=== PATIENT | female | born 1965 | race African-American/Black ===

== ENCOUNTER 2017-06-11 05:29 | Observation (INO) | payer SELFPAY ==
--- NOTE | 2017-06-11 05:56 | PDOC ---
History of Present Illness - General History Source: Patient Exam Limitations: No Limitations - History of Present Illness Initial Comments: 06/11/17 06:03 The patient is a 52 year old female with a significant PMHx of hypertension ( losartan daily) and hypothyroidism, who presents to the emergency department with progressive, intermittent chest pain and tightness for 2 days. The patient reports feeling a mild chest tightness yesterday, however, states the pain was worse this morning and woke her out of sleep at 3AM. She denies radiation of her chest pain. She reports stretching temporarily alleviates her chest tightness. She denies recent travels, illnesses, or sick contacts. She denies dizziness, SOB, headache, nausea, vomiting or abdominal pain. She denies dysuria, hematuria , or change in urination. PCP: Dr. Erwin Robles [employer] Collision Estimator: Dr. Cross <Bea Salazar - Last Filed: 06/11/17 06:03> <Tiffanie Calle - Last Filed: 06/11/17 06:54> - General Chief Complaint: Chest Pain Stated Complaint: CHEST PAIN Time Seen by Provider: 06/11/17 05:55 Past History <Bea Salazar - Last Filed: 06/11/17 06:03> - Past Medical History Anemia: No Asthma: No Cancer: No Cardiac Disorders: No CVA: No COPD: No CHF: No Diabetes: No GI Disorders: No Disorders: No HTN: No Hypercholesterolemia: No Liver Disease: No Seizures: No Thyroid Disease: No - Immunization History Immunization Up to Date: Yes - Suicide/Smoking/Psychosocial Hx Smoking Status: No Smoking History: Unknown if ever smoked Have you smoked in the past 12 months: No Number of Cigarettes Smoked Daily: 2 Hx Alcohol Use: No Drug/Substance Use Hx: No Substance Use Type: None Hx Substance Use Treatment: No <Tiffanie Calle - Last Filed: 06/11/17 06:54> - Past Medical History Allergies/Adverse Reactions: Allergies Allergy/AdvReac Type Severity Reaction Status Date / Time No Known Allergies Allergy Verified 06/11/17 05:55 Home Medications: Ambulatory Orders Levothyroxine [Synthroid -] 50 mcg PO DAILY@0700 #30 tablet 05/02/16 Lisinopril [Prinivil] 10 mg PO DAILY #30 tablet 05/02/16 Review of Systems - Review of Systems Able to Perform ROS?: Yes Comments:: 06/11/17 06:08 GENERAL/CONSTITUTIONAL: No fever or chills. No weakness. HEAD, EYES, EARS, NOSE AND THROAT: No change in vision. No ear pain or discharge. No sore throat. GASTROINTESTINAL: No nausea, vomiting, diarrhea or constipation. GENITOURINARY: No dysuria, frequency, or change in urination. CARDIOVASCULAR: (+) chest pain/tightness. No shortness of breath. RESPIRATORY: No cough, wheezing, or hemoptysis. MUSCULOSKELETAL: No joint or muscle swelling or pain. No neck or back pain. SKIN: No rash NEUROLOGIC: No headache, vertigo, loss of consciousness, or change in strength/ sensation. ENDOCRINE: No increased thirst. No abnormal weight change. HEMATOLOGIC/LYMPHATIC: No anemia, easy bleeding, or history of blood clots. ALLERGIC/IMMUNOLOGIC: No hives or skin allergy. <Bea Salazar - Last Filed: 06/11/17 06:03> *Physical Exam - Vital Signs Last Vital Signs Temp Pulse Resp BP Pulse Ox 71 14 187/101 98 06/11/17 05:55 06/11/17 05:55 06/11/17 05:55 06/11/17 05:55 - Physical Exam Comments: 06/11/17 06:08 Constitutional: Awake, alert, oriented. No acute distress. Head: Normocephalic. Atraumatic Eyes: PERRL. EOMI. Conjunctivae are not pale. ENT: Mucous membranes are moist and intact. Posterior pharynx without exudates or erythema. Uvula midline. Neck: Supple. Full ROM. No lymphadenopathy. Cardiovascular: (+) hypertensive (189/111). Regular rate. Regular rhythm. S1, S2 regular. Distal pulses are 2+ and symmetric. Pulmonary/Chest: (+) wheezing in right lung field. No evidence of respiratory distress. No rales or rhonchi. Abdominal: Soft and non-distended. There is no tenderness. No rebound, guarding or rigidity. No organomegaly. No palpable masses. Good bowel sounds. Back: No CVA tenderness. Musculoskeletal: No edema. No cyanosis. No clubbing. Full range of motion in all extremities. Nocalf tenderness. Radial/pedal pulses are intact and 2+ bilaterally Skin: Skin is warm and dry. No petechiae. No purpura. Neurological: Alert and oriented to person, place, and time. Cranial nerves II -XII are grossly intact. Normal speech. Strength is grossly symmetric. No sensory deficits. Psychiatric: Good eye contact. Normal interaction, affect and behavior. <Bea Salazar - Last Filed: 06/11/17 06:03> Heart Score/ECG Review - ECG Intrepretation Comment:: 06/11/17 06:10 EKG was read by Dr. Calle Impression: sinus rhythm at 66 bpm with normal axis, LVH and poor Rwave progression. There are Twave inversion in the lateral leads seen in prior EKGs. Unchanged from priors. <Bea Salazar - Last Filed: 06/11/17 06:03> ED Treatment Course - LABORATORY CBC & Chemistry Diagram: 06/11/17 06:15 06/11/17 06:09 <Tiffanie Calle - Last Filed: 06/11/17 06:54> Medical Decision Making - Medical Decision Making 06/11/17 06:19 a/p: 52yo female with substernal CP -pt hypertensive with intermittent cp x 2 days -hx of HTN - bp 188/111 during exam -no sob, nausea, or diaphoresis -will check trops, tsh, labs -cxr -ekg -nitro for pain and bp - took lisinopril at home -asa 06/11/17 06:54 re-eval: pt states cp slightly improved bp still 187/97. will add SL nitro labs pending pt will be signed out to the oncoming ED physician pending labs and further eval <Tiffanie Calle - Last Filed: 06/11/17 06:54> *DC/Admit/Observation/Transfer - Attestations Scribe Attestion: 06/11/17 06:11 Documentation prepared by Bea Salazar, acting as nurses medical assistants phlebotomists for Tiffanie Calle DO <Bea Salazar - Last Filed: 06/11/17 06:03> - Attestations Physician Attestion: 06/11/17 06:21 I, Dr. Tiffanie Calle DO, attest that this document has been prepared under my direction and personally reviewed by me in its entirety. I further attest, that it accurately reflects all work, treatment, procedures and medical decision -making performed by me. <Tiffanie Calle - Last Filed: 06/11/17 06:54> Diagnosis at time of Disposition: Nonspecific ST-T wave electrocardiographic changes, Chest pain in adult - Referrals Referrals: Erwin Robles MD [Primary Care Provider] -
[2017-06-11 05:58] VITALS: BMI 41.0
[2017-06-11] MEDS ORDERED: ASPIRIN 81 MG CHEWABLE TABLETS PO ONE (06:03)
[2017-06-11] MEDS ORDERED: NITROGLYCERIN 2% OINTMENT - 1GM PACKET TD ONE ×2 (06:03→06:11)
[2017-06-11] MEDS ORDERED: ASPIRIN 325 MG TABLET ONE (06:10)
[2017-06-11 06:31] LABS: BASO % 1.3 % (0-2.0); EOS % 1.2 % (0-4.5); HEMATOCRIT 32.8 % (32.4-45.2); HEMOGLOBIN 10.8 GM/dL (10.7-15.3); LYMPH % 32.7 % (8-40); MCH 30.3 pg (25.7-33.7); MCHC 32.9 g/dl (32.0-36.0); MEAN CELL VOLUME 92.3 fl (80-96); MEAN PLT VOLUME 9.5 fl (7.5-11.1); MONO % 7.2 % (3.8-10.2); NEUT % 57.6 % (42.8-82.8); PLATELET COUNT 233 K/MM3 (134-434); RBC 3.56 M/mm3 (3.60-5.2); RDW 15.7 % (11.6-15.6); WHITE BLOOD COUNT 5.2 K/mm3 (4.0-10.0)
[2017-06-11 06:43] LABS: INR 0.93 (0.82-1.09); PROTHROMBIN TIME (PATIENT) 10.5 SEC (9.98-11.88)
[2017-06-11 06:46] LABS: ACTIVATED PTT 27.4 SECONDS (26.9-34.4)
[2017-06-11 06:53] LABS: ALBUMIN 3.6 g/dl (3.4-5.0); ANION GAP 6 (8-16); BILIRUBIN,TOTAL 0.3 mg/dL (0.2-1.0); BLOOD UREA NITROGEN 17 mg/dL (7-18); CALCIUM 8.8 mg/dL (8.5-10.1); CHLORIDE 104 mmol/L (98-107); CO2 28 mmol/L (21-32); CREATININE 0.9 mg/dL (0.55-1.02); GLUCOSE,RANDOM 98 mg/dL (74-106); SGOT/AST 21 U/L (15-37); SGPT/ALT 21 U/L (12-78); SODIUM 138 mmol/L (136-145); TOT PROT 7.4 g/dl (6.4-8.2)
[2017-06-11] MEDS ORDERED: NITROGLYCERIN SUBLINGUAL 1/150 0.4 MG TAB SL ONE (06:53)
[2017-06-11] MEDS ORDERED: NITROGLYCERIN SUBLINGUAL 1/150 0.4 MG TAB ONE (07:00)
[2017-06-11 07:02] LABS: ALK PHOS 112 U/L (45-117); N-TERMINAL BNP 156.29 pg/ml (5-125)
[2017-06-11] MEDS ORDERED: ACETAMINOPHEN 325 MG TABLET (FP) PO ONE (07:25)
--- NOTE | 2017-06-11 07:28 | PDOC ---
*Physical Exam - Vital Signs Last Vital Signs Temp Pulse Resp BP Pulse Ox 71 14 187/101 99 06/11/17 05:55 06/11/17 05:55 06/11/17 05:55 06/11/17 06:22 Heart Score/ECG Review - History History: Slightly suspicious - Electrocardiogram EKG: Non specific repolarization disturbance - Age Age: 45-65 - Risk Factors Risk Factors Heart Score: Yes Hx Hypertension, Yes Smoking History Based on the list above the patient has:: 1-2 risk factors - Troponin Troponin: </= normal limit - Score Heart Score - Total: 3 ED Treatment Course - LABORATORY CBC & Chemistry Diagram: 06/11/17 06:15 06/11/17 06:09 - ADDITIONAL ORDERS Additional order review: Laboratory Results 06/11/17 06/11/17 06/11/17 06:26 06:15 06:09 PT with INR 10.50 INR 0.93 PTT (Actin FS) 27.4 Sodium Potassium Chloride Carbon Dioxide Anion Gap BUN Creatinine Creat Clearance w eGFR Random Glucose Calcium Magnesium Total Bilirubin AST ALT Alkaline Phosphatase Creatine Kinase Troponin I B-Natriuretic Peptide Total Protein Albumin TSH Free T4 0.48 L Serum , Qual Negative 06/11/17 06:09 PT with INR INR PTT (Actin FS) Sodium 138 Potassium 4.0 Chloride 104 Carbon Dioxide 28 Anion Gap 6 L BUN 17 Creatinine 0.9 Creat Clearance w eGFR > 60 Random Glucose 98 Calcium 8.8 Magnesium 2.0 Total Bilirubin 0.3 AST 21 D ALT 21 D Alkaline Phosphatase 112 Creatine Kinase 228 H Troponin I < 0.02 B-Natriuretic Peptide 156.29 H Total Protein 7.4 Albumin 3.6 TSH 29.00 H D Free T4 Serum , Qual 06/11/17 06:15 RBC 3.56 L MCV 92.3 MCHC 32.9 RDW 15.7 H MPV 9.5 Neutrophils % 57.6 Lymphocytes % 32.7 Monocytes % 7.2 Eosinophils % 1.2 Basophils % 1.3 - Medications Given in the ED: ED Medications Discontinued Medications Generic Name Dose Route Start Last Admin Trade Name Freq PRN Reason Stop Dose Admin Aspirin 324 mg 06/11/17 06:03 06/11/17 06:21 Asa - PO 06/11/17 06:04 324 mg ONCE ONE Administration Nitroglycerin 0.5 inch 06/11/17 06:03 06/11/17 06:21 Nitro-Bid 2% Paste - TD 06/11/17 06:04 0.5 inch ONCE ONE Administration Nitroglycerin 0.4 mg 06/11/17 06:53 06/11/17 07:01 Nitrostat - SL 06/11/17 06:54 0.4 mg ONCE ONE Administration Medical Decision Making - Medical Decision Making 06/11/17 07:26 Pt signed out to me from Dr. Calle - The patient is a 52y F hx of HTN, hypothyroidism,m presents with chest pain/ tinthess, had one episode yeserday lasting approx 2 hrs when she was on the phone, and then again last night that woke her out of sleep. she states the pain has been consant since last night. the pain is not exeritional and the pt denies any associated sob, exertional cp, nausae/vomiting, diaphoresis, back pain, chest pain. The patient was noted to be hypertensive, she was given ntg for her chest pain with improvement of her chest pain (but not complete resolution). pt now complaining of a headache. Pt does endorse some dietery indiscretions recently eating alot of cheese. TSH slightly elevated - pt states she had missed her thyroid med for a month before starting in may again. PMD dr. Robles Cards: Dr. Cross will dw dr. cross regarding disposition 06/11/17 08:[address] randolph rquests observation case also d/w dr. smith service will obs in tele. Case discussed in detail with admitting physician including history, physical exam and ancillary studies. Admitting physician has assumed care for the patient, will follow all pending diagnostics and will complete the evaluation and treatment. *DC/Admit/Observation/Transfer Diagnosis at time of Disposition: Nonspecific ST-T wave electrocardiographic changes, Chest pain in adult, Hypertensive emergency - Discharge Dispostion Condition at time of disposition: Stable Admit: Yes - Referrals Referrals: Erwin Robles MD [Primary Care Provider] - - Patient Instructions - Post Discharge Activity
[2017-06-11] MEDS ORDERED: LISINOPRIL 10 MG TABLET (FP) PO ONE (07:33)
--- NOTE | 2017-06-11 08:47 | CON.CARD ---
Cardiology Consult (text) - Consultation Consultation Note: IMP: Atypical chest pain HTN, chronic Hypertensive heart disease Abnl ECG REC: ASA Cycle cardiac enzymes Echo for EF assessment Plan for Persantine MIBI after serial enzymes, Baseline ECG is non-diagnostic. Full consult dictated. Thank you
--- NOTE | 2017-06-11 09:12 | CONS ---
CARDIOLOGY CONSULTATION DATE OF CONSULTATION: 06/11/2017 REQUESTING PHYSICIAN: Corona Gonzalez MD REASON FOR CONSULTATION: Chest pain. HISTORY OF PRESENT ILLNESS: The patient is a 52-year-old female with past medical history of hypothyroidism and hypertension, who presents to the ER with 2 episodes of substernal chest pressure at rest, one which occurred yesterday, lasting 2 hours with no associated symptoms, and again this morning, also not associated with nausea, vomiting, or diaphoresis. She describes the discomfort as central chest pressure, nonradiating. Over the last several weeks, she has had some exertional dyspnea. She denies palpitations, syncope, or prior cardiac history. PAST MEDICAL HISTORY: As above. ALLERGIES: She has no known drug allergies. HOME MEDICATIONS: Include lisinopril and Synthroid. FAMILY HISTORY: Negative for early coronary disease. SOCIAL HISTORY: Smoked 15 years ago, quit. Denies illicit drug use. PHYSICAL EXAMINATION: General: She is comfortable, in no distress. Vital Signs: Initial blood pressure of 187/100, now down to 160/90. Oxygen saturation 99 on room air. Neck: Pulses 2+, symmetric. No bruits. Heart: S1, S2. Regular. No murmurs. Chest: Clear bilaterally. Abdomen: Soft, nontender. Extremities: No edema. DIAGNOSTIC DATA: Her EKG is non-diagnostic, showing normal sinus rhythm with left atrial enlargement, left ventricular hypertrophy, and nonspecific lateral T-wave inversions which are chronic. Chest x-ray showed no acute pathology. CBC was normal. INR was normal. Electrolytes were normal as was creatinine. CK and troponin are negative x1 set. TSH is 29. IMPRESSION: 1. Atypical chest pain. 2. Hypertensive heart disease with non-diagnostic electrocardiogram. RECOMMENDATION: 1. Aspirin. 2. Serial cardiac enzymes. 3. Echocardiogram for EF assessment. 4. Plan for Persantine nuclear stress test once cardiac enzymes are assessed. Thank you for the consultation. BHAVNA MCGILL M.D. [id number]
[2017-06-11] MEDS ORDERED: ACETAMINOPHEN 325 MG TABLET (FP) ONE (10:00)
[2017-06-11] MEDS ORDERED: LISINOPRIL 5 MG TABLET (FP) ONE (10:00)
--- NOTE | 2017-06-11 14:45 | EKG ---
Test Reason : Blood Pressure : / mmHG Vent. Rate : 066 BPM Atrial Rate : 066 BPM P-R Int : 170 ms QRS Dur : 090 ms QT Int : 422 ms P-R-T Axes : 064 036 090 degrees QTc Int : 442 ms NORMAL SINUS RHYTHM POSSIBLE LEFT ATRIAL ENLARGEMENT LEFT VENTRICULAR HYPERTROPHY NONSPECIFIC T WAVE ABNORMALITY ABNORMAL ECG WHEN COMPARED WITH ECG OF 01-MAY-2016 01:38, NONSPECIFIC T WAVE ABNORMALITY HAS REPLACED INVERTED T WAVES IN INFERIOR LEADS Confirmed by Mo Lemus MD ([id number]) on 06/11/2017 2:44:49 PM Referred By: Confirmed By:Mo Lemus MD
--- NOTE | 2017-06-12 02:56 | PN ---
Progress Note, Physician - Current Medication List Current Medications: Active Medications Aspirin (Ecotrin -) 81 mg PO DAILY NELI Heparin Sodium (Porcine) (Heparin -) 5,000 unit SQ BID NELI Levothyroxine Sodium (Synthroid -) 50 mcg PO DAILY@0700 NELI Lisinopril (Prinivil) 20 mg PO DAILY NELI - Objective Vital Signs: Vital Signs Temperature 97.8 F 06/12/17 00:05 Pulse Rate 81 06/12/17 00:05 Respiratory Rate 20 06/12/17 00:05 Blood Pressure 137/90 06/12/17 00:05 O2 Sat by Pulse Oximetry (%) 96 06/12/17 00:05 Labs: CBC, BMP 06/11/17 06:15 06/11/17 06:09 INR, PTT INR 0.93 (0.82-1.09) 06/11/17 06:15
[2017-06-12] MEDS ORDERED: LEVOTHYROXINE NA 50 MCG TABLET (FP) PO SCH (07:00)
[2017-06-12 08:17] VITALS: TEMP 98.3
--- NOTE | 2017-06-12 09:39 | PN ---
Progress Note, Physician Chief Complaint: echo basically normal No further CP Enzymes negative TELE: NSR - Current Medication List Current Medications: Active Medications Aspirin (Ecotrin -) 81 mg PO DAILY [facility] Heparin Sodium (Porcine) (Heparin -) 5,000 unit SQ BID [facility] Levothyroxine Sodium (Synthroid -) 50 mcg PO DAILY@0700 [facility] Last Admin: 06/12/17 06:54 Dose: 50 mcg Lisinopril (Prinivil) 20 mg PO DAILY [facility] - Objective Vital Signs: Vital Signs Temperature 98.3 F 06/12/17 08:15 Pulse Rate 69 06/12/17 08:15 Respiratory Rate 16 06/12/17 08:15 Blood Pressure 156/90 06/12/17 08:15 O2 Sat by Pulse Oximetry (%) 96 06/12/17 00:05 Constitutional: Yes: Calm Cardiovascular: Yes: Regular Rate and Rhythm Respiratory: Yes: CTA Bilaterally Gastrointestinal: Yes: Soft Edema: No Neurological: Yes: Alert, Oriented Labs: CBC, BMP 06/11/17 06:15 06/11/17 06:09 INR, PTT INR 0.93 (0.82-1.09) 06/11/17 06:15 - ....Imaging EKG: Image Reviewed Assessment/Plan IMP: Atypical chest pain HTN, chronic Hypertensive heart disease Abnl ECG REC: -For stress MIBI today -If negative, can d/c home with outpatient f/u
[2017-06-12] MEDS ORDERED: REGADENOSON 0.4 MG/5 ML PRE-FILLED SYRINGE IVPUSH ONE ×2 (09:59→10:15)
[2017-06-12] MEDS ORDERED: LISINOPRIL 20 MG TABLET (FP) PO SCH (10:00)
[2017-06-12] MEDS ORDERED: ASPIRIN COATED 81 MG TABLET.EC PO SCH (10:00)
[2017-06-12] MEDS ORDERED: HEPARIN NA (PORCINE) 5,000 UNITS/ML 1ML VIAL SQ SCH (10:00)
--- NOTE | 2017-06-12 17:26 | HP ---
Admitting History and Physical - Smoking History Smoking history: Unknown if ever smoked Have you smoked in the past 12 months: No Aproximately how many cigarettes per day: 2 - Alcohol/Substance Use Hx Alcohol Use: No Home Medications - Allergies Allergies/Adverse Reactions: Allergies Allergy/AdvReac Type Severity Reaction Status Date / Time No Known Allergies Allergy Verified 06/11/17 05:55 - Home Medications Home Medications: Ambulatory Orders Levothyroxine [Synthroid -] 50 mcg PO DAILY@0700 #30 tablet 05/02/16 Lisinopril [Prinivil] 20 mg PO DAILY 06/11/17 Physical Examination Vital Signs: Vital Signs Temperature 98.3 F 06/12/17 14:00 Pulse Rate 82 06/12/17 14:00 Respiratory Rate 16 06/12/17 08:15 Blood Pressure 141/73 06/12/17 14:00 O2 Sat by Pulse Oximetry (%) 96 06/12/17 09:00 Labs: CBC, BMP 06/11/17 06:15 06/11/17 06:09
[2017-06-12] MEDS ORDERED: HYDROCHLOROTHIAZIDE 25 MG TABLET (FP) PO ONE (18:00)
[2017-06-12 18:38] VITALS: BP 143/79; PULSE 86
--- NOTE | 2017-06-18 10:53 | EKG ---
Test Reason : Blood Pressure : / mmHG Vent. Rate : 055 BPM Atrial Rate : 055 BPM P-R Int : 168 ms QRS Dur : 094 ms QT Int : 464 ms P-R-T Axes : 050 021 177 degrees QTc Int : 443 ms SINUS BRADYCARDIA T WAVE ABNORMALITY, CONSIDER INFEROLATERAL ISCHEMIA ABNORMAL ECG WHEN COMPARED WITH ECG OF 11-JUN-2017 05:56, T WAVE INVERSION NOW EVIDENT IN ANTERIOR LEADS Confirmed by MD Adeel, Varinder ([id number]) on 06/18/2017 10:52:42 AM Referred By: Confirmed By:Varinder Denis MD
== END 2017-06-12 19:18 | disposition home or self-care (01) ==
LOC: JER 05:29 → JERBED 09:00 → UNDOADMOB 09:11 → JERBED 09:11 → J4W 06-12 00:58 → OBSVTOIN 06-12 02:54 → INTOOBSV 06-12 02:54
PROVIDERS: ADMIT Internal Medicine; ATTEND Internal Medicine
DX: I16.0 Hypertensive urgency (principal); R94.31 Abnormal electrocardiogram [ECG] [EKG]; R07.89 Other chest pain; I10 Essential (primary) hypertension; Z79.82 Long term (current) use of aspirin
CPT/HCPCS: 36415; 71046-TC; 78452-TC; 80053; 82550; 82553; 83735; 83880; 84439; 84443; 84484; 84703; 85025; 85610; 85730; 93005; 93010; 93017; 93306-TC; 99285-25; A9502; G0378; J1644

== ENCOUNTER 2018-08-25 15:57 | Emergency (ER) | payer SELFPAY ==
[2018-08-25 16:08] VITALS: TEMP 98; BMI 36.8
--- NOTE | 2018-08-25 16:54 | PDOC ---
History of Present Illness - General Chief Complaint: Blood Pressure Problem Stated Complaint: ELEVATED BP Time Seen by Provider: 08/25/18 16:47 - History of Present Illness Initial Comments: The pt is a 53F w/ a history of HTN, WALTERS, and hypothyroidism who presents for evaluation of elevated BP and WALTERS. The pt reports constant, gradual-onset, bi- temporal WALTERS that radiates to her occiput, is worse with light and sound, and not alleviated by Ibuprofen. WALTERS is similar to previous WALTERS, denies associated weakness or changes in sensation. Endorses intermittent, substernal, non- radiating chest pain that lasts for minutes and resolves spontaneously. States that she should be in Lisinopril for HTN but has not been as compliant because she lost her insurance and no longer has a PCP. PMH: HTN, Hypothyroidism PSH: breast reduction and lift Meds: Lisinopril and Synthroid Allergies: Denies SH: Denies x3 08/25/18 17:15 Past History - Past Medical History Allergies/Adverse Reactions: Allergies Allergy/AdvReac Type Severity Reaction Status Date / Time No Known Allergies Allergy Verified 08/25/18 16:08 Home Medications: Ambulatory Orders Lisinopril [Prinivil] 20 mg PO DAILY 06/11/17 Levothyroxine [Synthroid -] 25 mcg PO DAILY #30 tablet 06/12/17 Lisinopril 20 mg PO DAILY #30 tablet 08/25/18 Anemia: No Asthma: No Cancer: No Cardiac Disorders: No CVA: No COPD: No CHF: No Diabetes: No GI Disorders: No Disorders: No HTN: Yes Hypercholesterolemia: No Liver Disease: No Seizures: No Thyroid Disease: Yes - Immunization History Immunization Up to Date: Yes - Suicide/Smoking/Psychosocial Hx Smoking Status: No Smoking History: Never smoked Have you smoked in the past 12 months: No Number of Cigarettes Smoked Daily: 2 Hx Alcohol Use: Yes (OCCASIONALLY) Drug/Substance Use Hx: No Substance Use Type: None Hx Substance Use Treatment: No Review of Systems - Review of Systems Able to Perform ROS?: Yes Comments:: GENERAL/CONSTITUTIONAL: No fever or chills. No weakness HEAD, EYES, EARS, NOSE AND THROAT: No change in vision. No ear pain or discharge. No sore throat CARDIOVASCULAR: No shortness of breath RESPIRATORY: Denies cough, hemoptysis GASTROINTESTINAL: No nausea, vomiting, diarrhea or constipation GENITOURINARY: No dysuria, frequency, or change in urination MUSCULOSKELETAL: No joint or muscle swelling or pain. No neck or back pain SKIN: No rash NEUROLOGIC: No vertigo, loss of consciousness, or change in strength/sensation ENDOCRINE: No increased thirst. No abnormal weight change HEMATOLOGIC/LYMPHATIC: No anemia, easy bleeding, or history of blood clots ALLERGIC/IMMUNOLOGIC: No hives or skin allergy 08/25/18 16:53 Is the patient limited Greek proficient: No *Physical Exam - Vital Signs Last Vital Signs Temp Pulse Resp BP Pulse Ox 98.0 F 71 16 179/90 H 98 08/25/18 16:05 08/25/18 16:05 08/25/18 16:05 08/25/18 16:05 08/25/18 16:05 - Physical Exam Comments: GENERAL: Awake, alert, and oriented to person/place/time, in no acute distress HEAD: No signs of trauma, normocephalic, atraumatic EYES: PERRLA, EOMI, sclera anicteric, conjunctiva clear ENT: Hearing grossly normal, nares patent, oropharynx clear without exudates. Moist mucosa LUNGS: No distress, speaks full sentences, clear to auscultation bilaterally HEART: Regular rate and rhythm, normal S1 and S2, no murmurs appreciated, peripheral pulses normal and equal bilaterally ABDOMEN: Soft, nontender, normoactive bowel sounds. No guarding, no rebound EXTREMITIES: Normal inspection, Normal range of motion, no edema. No clubbing or cyanosis NEUROLOGICAL: Cranial nerves II through XII grossly intact. Normal speech, no focal sensorimotor deficits SKIN: Warm, Dry 08/25/18 16:53 ED Treatment Course - LABORATORY CBC & Chemistry Diagram: 08/25/18 18:00 08/25/18 18:00 Medical Decision Making - Medical Decision Making The pt is a 53F w/ a history of HTN and hypothyroidism who presents for evaluation of 3 days of persistent WALTERS, intermittent chest pain, and elevated BP ED Course CMP, CBC, Trop I Reglan, Benadryl, IVF, Tylenol for WALTERS Will give pt information for reduced script programs 08/25/18 17:23 No leukocytosis No anemia 08/25/18 18:53 Lytes wnl Trop I neg No PRAKASH No LFTs 08/25/18 19:10 Pt's symptoms resolved Rx for renewal of Lisinopril 20mg PO daily Plan for D/C w/ PCP f/u Discharge instructions and return precautions given Pt in agreement and verbalized understanding Dispo: home 08/25/18 19:27 *DC/Admit/Observation/Transfer Diagnosis at time of Disposition: Chest pain in adult Hypertension Qualifiers: Hypertension type: unspecified Qualified Code(s): I10 - Essential (primary) hypertension Headache Qualifiers: Headache type: unspecified Headache chronicity pattern: unspecified pattern Intractability: not intractable Qualified Code(s): R51 - Headache - Discharge Dispostion Disposition: HOME Condition at time of disposition: Improved Decision to Admit order: No - Prescriptions Prescriptions: Lisinopril 20 mg PO DAILY #30 tablet - Referrals Referrals: [facility] [Provider Group] Romel White MD [Staff Physician] - - Patient Instructions Printed Discharge Instructions: DI for High Blood Pressure Additional Instructions: You were seen in the Emergency Department for evaluation of headache. Review the handout provided at discharge. A prescription for Lisinopril was sent to the pharmacy that you specified, take as directed. Follow up with your primary care provider. Return to the Emergency Department if you develop fevers/chills, vision changes, chest pain, trouble breathing, nausea/vomiting, worsening symptoms, or any new/concerning symptoms. - Post Discharge Activity
--- NOTE | 2018-08-25 17:08 | PDOC ---
Attending Attestation - HPI HPI: The patient is a 53 year old female, with a significant past medical history of hypertension (occasional compliance of medications) and hypothyroidism, who presents to the emergency department with, elevated blood pressure and a bitemporal headache with associated photophobia and phonophobia. Patient endorses an associated intermittent, nonradiating, substernal chest pressure. She denies recent nausea, vomit, diarrhea or constipation. She denies recent dysuria, frequency, urgency or hematuria. Allergies: NKDA Past surgical history: breast reduction and lift. Primary Care Physician: Dr. Erwin Robles Special Events Driver: Dr. Cross <Marcin Joy - Last Filed: 08/25/18 19:17> - Resident Resident Name: Adeel Ochoa - ED Attending Attestation I have performed the following: I have examined & evaluated the patient, The case was reviewed & discussed with the resident, I agree w/resident's findings & plan, Exceptions are as noted - HPI HPI: 08/25/18 17:12 53-year-old female presents with dizziness, headache and states that she has a history of hypertension - Physicial Exam PE: 08/25/18 20:41 wnwd 53 yo in no acute distress head ncat neck supple lung cta b/l cvs [id number] abd protuberant skin warm and dry extremities no pitting edema,no erythema no cva tenderness neuro axox3,ambulatory,no gross focal neuro deficits psych appropriate - Medical Decision Making 08/25/18 20:43 EKG was normal sinus rhythm and was no significant change when compared to her prior EKG She had a negative troponin. CBC did not show any leukocytosis or significant anemia Chemistries were reviewed and she has a negative troponin, electrolytes were unremarkable and her creatinine was within normal limits pt has no insurance and ws given a pharmacy card to use to fill her lisinopril prescription pt discharged home <Olga Deleon - Last Filed: 08/25/18 20:44> Attestations - Attestations 08/25/18 19:17 Documentation prepared by Marcin Joy, acting as biomedical repair technician for Olga Deleon MD. <Marcin Joy - Last Filed: 08/25/18 19:17>
[2018-08-25] MEDS ORDERED: SODIUM CHLORIDE 0.9% 500 ML INFUS.BAG IV ONE (17:45)
[2018-08-25] MEDS ORDERED: METOCLOPRAMIDE HCL INJECTION 10 MG/2 ML VIAL IVPB ONE (17:45)
[2018-08-25] MEDS ORDERED: ACETAMINOPHEN 325 MG TABLET (FP) PO ONE (17:45)
[2018-08-25 18:27] LABS: HEMATOCRIT 34.8 % (32.4-45.2); HEMOGLOBIN 11.8 GM/dL (10.7-15.3); MEAN CELL VOLUME 94.3 fl (80-96); MEAN PLT VOLUME 9.3 fl (7.5-11.1); PLATELET COUNT 221 K/MM3 (134-434); RBC 3.69 M/mm3 (3.60-5.2); RDW 14.6 % (11.6-15.6); WHITE BLOOD COUNT 4.1 K/mm3 (4.0-10.0)
[2018-08-25] MEDS ORDERED: ACETAMINOPHEN 325 MG TABLET (FP) ONE (18:44)
[2018-08-25] MEDS ORDERED: METOCLOPRAMIDE HCL INJECTION 10 MG/2 ML VIAL ONE (18:45)
[2018-08-25 18:55] LABS: ALBUMIN 3.8 g/dl (3.4-5.0); ALK PHOS 110 U/L (45-117); ANION GAP 8 MMOL/L (8-16); BILIRUBIN,TOTAL 0.3 mg/dL (0.2-1); BLOOD UREA NITROGEN 15 mg/dL (7-18); CALCIUM 8.9 mg/dL (8.5-10.1); CHLORIDE 102 mmol/L (98-107); CO2 27 mmol/L (21-32); CREATININE 0.8 mg/dL (0.55-1.3); GLUCOSE,RANDOM 96 mg/dL (74-106); POTASSIUM 3.7 mmol/L (3.5-5.1); SGOT/AST 44 U/L (15-37); SGPT/ALT 39 U/L (13-61); SODIUM 137 mmol/L (136-145); TOT PROT 7.5 g/dl (6.4-8.2)
[2018-08-25 20:08] VITALS: BP 175/95; PULSE 66
--- NOTE | 2018-08-26 09:20 | EKG ---
Test Reason : Blood Pressure : / mmHG Vent. Rate : 061 BPM Atrial Rate : 061 BPM P-R Int : 176 ms QRS Dur : 102 ms QT Int : 462 ms P-R-T Axes : 053 034 146 degrees QTc Int : 465 ms NORMAL SINUS RHYTHM T WAVE ABNORMALITY, CONSIDER LATERAL ISCHEMIA PROLONGED QT ABNORMAL ECG WHEN COMPARED WITH ECG OF 11-JUN-2017 09:23, T WAVE VARIATION Confirmed by JOSE E CROUCH MD ([id number]) on 08/26/2018 9:19:46 AM Referred By: Confirmed By:JOSE E CROUCH MD
== END 2018-08-25 20:50 | disposition home or self-care (01) ==
LOC: JER 15:57
PROC: 3E033GC Introduction of Other Therapeutic Substance into Peripheral Vein, Percutaneous Approach (ICD-10-PCS; principal; 2018-08-25)
PROC: 3E033GC Introduction of Other Therapeutic Substance into Peripheral Vein, Percutaneous Approach (ICD-10-PCS; 2018-08-25)
DX: R07.9 Chest pain, unspecified (principal); I10 Essential (primary) hypertension; R51 Headache; E03.9 Hypothyroidism, unspecified
CPT/HCPCS: 36415; 71046-TC-FY; 80053; 84484; 85027; 93005; 93010; 99283-25

== ENCOUNTER 2020-03-18 04:39 | Emergency (ER) | payer OTHER ==
--- NOTE | 2020-03-18 04:46 | PDOC ---
History of Present Illness - General Stated Complaint: BACK PAIN - History of Present Illness Initial Comments: 03/18/20 04:45 HPI: Patient denies fever, chills, night sweats, WALTERS, vision change, chest pain, palpitations, SOB, cough, leg swelling, abdominal pain, nausea, vomiting, diarrhea, constipation, dysuria, hematuria, BPR, lightheadedness, weakness, sensory changes. PMHx: as noted above ROS: as noted SHx: Denies tobacco use; no alcohol use; no rec drugs Allergies: NKDA ROS: GENERAL/CONSTITUTIONAL: No fever or chills. No weakness. HEAD, EYES, EARS, NOSE AND THROAT: No change in vision. No ear pain or discharge. No sore throat. CARDIOVASCULAR: No chest pain or shortness of breath RESPIRATORY: No cough, wheezing, or hemoptysis. GASTROINTESTINAL: No nausea, vomiting, diarrhea or constipation. GENITOURINARY: No dysuria, frequency, or change in urination. MUSCULOSKELETAL: No joint or muscle swelling or pain. No neck or back pain. SKIN: No rash NEUROLOGIC: No headache, vertigo, loss of consciousness, or change in strength/sensation. ENDOCRINE: No increased thirst. No abnormal weight change HEMATOLOGIC/LYMPHATIC: No anemia, easy bleeding, or history of blood clots. ALLERGIC/IMMUNOLOGIC: No hives or skin allergy. PE: GENERAL: Awake, alert, and fully oriented, no acute distress HEAD: No signs of trauma, normocephalic, atraumatic EYES: EOMI, sclera anicteric, conjunctiva clear ENT: Auricles normal inspection, hearing grossly normal, nares patent, orop harynx clear without exudates. Moist mucosa NECK: Normal ROM, no lymphadenopathy LUNGS: No increased work of breathing, symmetrical chest rise, clear to auscultation bilaterally, no wheezes, crackles or rhonchi HEART: Regular rate, regular rhythm, normal S1 and S2, no murmur, peripheral pulses 2+ and equal bilaterally. ABDOMEN: Soft, nondistended, nontender. No guarding, no rebound. No masses. No CVAT MUSCULOSKELETAL: FROM NEUROLOGICAL: Cranial nerves II through XII grossly intact. Normal speech, stable gait, no focal sensorimotor deficits SKIN: Warm, Dry, normal turgor, no rashes or lesions noted Past History - Medical History Allergies/Adverse Reactions: Allergies Allergy/AdvReac Type Severity Reaction Status Date / Time No Known Allergies Allergy Verified 03/18/20 04:42 Home Medications: Ambulatory Orders Lisinopril [Prinivil] 20 mg PO DAILY 06/11/17 Levothyroxine [Synthroid -] 25 mcg PO DAILY #30 tablet 06/12/17 Lisinopril 20 mg PO DAILY #30 tablet 08/25/18 Azithromycin [Zithromax 250mg Tablets -] 250 mg PO UTDICT #6 tab 08/26/18 Anemia: No Asthma: No Cancer: No Cardiac Disorders: No CVA: No COPD: No CHF: No Diabetes: No GI Disorders: No Disorders: No HTN: Yes Hypercholesterolemia: No Liver Disease: No Seizures: No Thyroid Disease: Yes - Immunization History Immunization Up to Date: Yes - Psycho-Social/Smoking History Smoking Status: No Smoking History: Never smoked Have you smoked in the past 12 months: No Number of Cigarettes Smoked Daily: 2
--- NOTE | 2020-03-18 04:49 | PDOC ---
History of Present Illness - General Chief Complaint: Back Pain Stated Complaint: BACK PAIN Time Seen by Provider: 03/18/20 04:44 History Source: Patient Exam Limitations: No Limitations - History of Present Illness Initial Comments: 03/18/20 05:14 54F with PMH of HTN, obesity, HLD, and hypothyroidism presents to the ED with left sided back pain, which started 2 days ago, is constant, and non-radiating. It was making it difficult for her to sleep, so she called She does not recall a provoking event. She feels that it's difficult to breath due to pain with deep inhale. She also reports an episode of left sided chest tightness, sometimes occurs with exertion, lasts 3-4 min, resolved with rest. She reports increased urinary frequency, but no incontinence. Denies syncope, nvdc, hematuria, abd pain, or numbness/tingling/weakness. Allergies: NKDA Tob/Etoh/Rec drugs: neg x3 ROS: CARDIOVASCULAR: +chest pain, no shortness of breath RESPIRATORY: No cough GASTROINTESTINAL: No nausea, vomiting, diarrhea or constipation. GENITOURINARY: No dysuria; + frequency MUSCULOSKELETAL: left sided back pain NEUROLOGIC: No headache, vertigo, loss of consciousness, or change in streng th/sensation. PE: GENERAL: AOx3; no apparent distress CARDIO: RRR, normal S1/S2, no murmurs, rubs, or gallops. Pulses 2+ and equal bilaterally. LUNGS: No distress, speaks full sentences, CTA bilaterally BACK: left sided back tenderness with hypertonicity and mild swelling ABDOMEN: Soft, nontender. No guarding, no rebound. No masses EXTREMITIES: Normal inspection, Normal range of motion, no edema. SKIN: Warm, Dry. No rashes or lesions noted Assessment and Plan 1. ACS r/o 2. muscle strain Tito Proctor, PGY1 Emergency Medicine Past History - Medical History Allergies/Adverse Reactions: Allergies Allergy/AdvReac Type Severity Reaction Status Date / Time No Known Allergies Allergy Verified 03/18/20 04:42 Home Medications: Ambulatory Orders Lisinopril [Prinivil] 20 mg PO DAILY 06/11/17 Levothyroxine [Synthroid -] 25 mcg PO DAILY #30 tablet 06/12/17 Lisinopril 20 mg PO DAILY #30 tablet 08/25/18 Azithromycin [Zithromax 250mg Tablets -] 250 mg PO UTDICT #6 tab 08/26/18 Anemia: No Asthma: No Cancer: No Cardiac Disorders: No CVA: No COPD: No CHF: No Diabetes: No GI Disorders: No Disorders: No HTN: Yes Hypercholesterolemia: No Liver Disease: No Seizures: No Thyroid Disease: Yes - Immunization History Immunization Up to Date: Yes - Psycho-Social/Smoking History Smoking Status: No Smoking History: Never smoked Have you smoked in the past 12 months: No Number of Cigarettes Smoked Daily: 2 ED Treatment Course - LABORATORY CBC & Chemistry Diagram: 03/18/20 05:30 03/18/20 05:30 Medical Decision Making - Medical Decision Making 03/18/20 05:28 54F p/w back pain, as well as some chest tightness -> will r/o ACS EKG normal sinus rhythm, unchanged T wave inversions compared to previous EKG's. 03/18/20 06:27 Normocytic anemia of 10.6. Trop negative -> will trend at 2hr Discharge - Follow up/Referral Referrals: Beatriz Robles [Primary Care Provider] - - Patient Discharge Instructions - Post Discharge Activity
[2020-03-18 04:56] VITALS: BMI 39.4
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
[2020-03-18] MEDS ORDERED: ACETAMINOPHEN 1000 MG/100 ML VIAL (NON FORMULARY) IVPB ONE (05:13)
[2020-03-18] MEDS ORDERED: LIDOCAINE 5% TOPICAL PATCH TP ONE (05:14)
[2020-03-18] MEDS ORDERED: LIDOCAINE 5% TOPICAL PATCH ONE (05:22)
[2020-03-18] MEDS ORDERED: LISINOPRIL 20 MG TABLET PO ONE (05:34)
[2020-03-18] MEDS ORDERED: LISINOPRIL 20 MG TABLET ONE (05:38)
[2020-03-18 05:49] LABS: BASO % 1.5 % (0-2.0); EOS % 0.6 % (0-4.5); HEMATOCRIT 31.1 % (32.4-45.2); HEMOGLOBIN 10.3 GM/dL (10.7-15.3); LYMPH % 27.1 % (8-40); MCH 30.2 pg (25.7-33.7); MCHC 33.1 g/dl (32.0-36.0); MEAN CELL VOLUME 91.3 fl (80-96); MONO % 7.9 % (3.8-10.2); NEUT % 62.9 % (42.8-82.8); PLATELET COUNT 227 K/MM3 (134-434); WHITE BLOOD COUNT 8.7 K/mm3 (4.0-10.0)
--- NOTE | 2020-03-18 06:05 | PDOC ---
Attending Attestation - Resident Resident Name: Tito Proctor - ED Attending Attestation I have performed the following: I have examined & evaluated the patient, The case was reviewed & discussed with the resident, I agree w/resident's findings & plan, Exceptions are as noted - HPI HPI: 03/18/20 07:07 See resident HPI - Physicial Exam PE: 03/18/20 07:07 Agree with documented exam - Medical Decision Making 03/18/20 07:07 Likely msk back px, Discharge - Follow up/Referral Referrals: Beatriz Robles [Primary Care Provider] - - Patient Discharge Instructions - Post Discharge Activity
[2020-03-18 06:32] LABS: ALBUMIN 3.6 g/dl (3.4-5.0); ALK PHOS 114 U/L (45-117); ANION GAP 4 MMOL/L (8-16); BILIRUBIN,TOTAL 0.4 mg/dL (0.2-1); CALCIUM 8.9 mg/dL (8.5-10.1); CHLORIDE 106 mmol/L (98-107); CO2 30 mmol/L (21-32); CREATININE 0.7 mg/dL (0.55-1.3); GLUCOSE,RANDOM 97 mg/dL (74-106); POTASSIUM 4.3 mmol/L (3.5-5.1); SGOT/AST 34 U/L (15-37); SGPT/ALT 20 U/L (13-61); SODIUM 140 mmol/L (136-145); TOT PROT 7.2 g/dl (6.4-8.2)
--- NOTE | 2020-03-18 09:39 | PDOC ---
*Physical Exam - Vital Signs Last Vital Signs Temp Pulse Resp BP Pulse Ox 98.3 F 78 18 165/86 94 L 03/18/20 06:13 03/18/20 06:13 03/18/20 06:13 03/18/20 06:13 03/18/20 06:13 ED Treatment Course - LABORATORY CBC & Chemistry Diagram: 03/18/20 05:30 03/18/20 05:30 - ADDITIONAL ORDERS Additional order review: Laboratory Results 03/18/20 03/18/20 08:28 05:30 Sodium 140 Potassium 4.3 Chloride 106 Carbon Dioxide 30 Anion Gap 4 L BUN 17.0 Creatinine 0.7 Est GFR (CKD-EPI)AfAm 112.26 Est GFR (CKD-EPI)NonAf 96.86 Random Glucose 97 Calcium 8.9 Total Bilirubin 0.4 AST 34 ALT 20 Alkaline Phosphatase 114 Creatine Kinase 252 H Creatine Kinase Index 0.4 CK-MB (CK-2) 1.1 Troponin I < 0.02 < 0.02 Total Protein 7.2 Albumin 3.6 03/18/20 05:30 RBC 3.40 L MCV 91.3 MCHC 33.1 RDW 15.0 MPV 9.0 Neutrophils % 62.9 Lymphocytes % 27.1 Monocytes % 7.9 Eosinophils % 0.6 Basophils % 1.5 - Medications Given in the ED: ED Medications Discontinued Medications Generic Name Dose Route Start Last Admin Trade Name Freq PRN Reason Stop Dose Admin Acetaminophen 1,000 mg 03/18/20 05:13 03/18/20 05:36 Ofirmev Injection - IVPB 03/18/20 05:14 1,000 mg ONCE ONE Administration Lidocaine 1 patch 03/18/20 05:14 03/18/20 05:37 Lidoderm Patch - TP 03/18/20 05:15 1 patch ONCE ONE Administration Lisinopril 20 mg 03/18/20 05:34 03/18/20 05:40 Prinivil PO 03/18/20 05:35 20 mg ONCE ONE Administration Medical Decision Making - Medical Decision Making 03/18/20 09:39 Sign out received during shift change. 54F w/hx HTN, HLD, obesity p/w back pain, chest pain. Symptoms improved with ofirmev, initial bloodwork reassuring Pending: Repeat trop Dispo: Discharge Discharge - Discharge Information Problems reviewed: Yes Clinical Impression/Diagnosis: Atypical chest pain Condition: Stable Disposition: HOME - Admission No - Follow up/Referral Referrals: Beatriz Robles [Primary Care Provider] - - Patient Discharge Instructions Patient Printed Discharge Instructions: DI for Low Back Pain, DI for Chest Pain Additional Instructions: You were seen in the ER for back pain, chest pain. Your bloodwork was normal. Return to the ER if you develop worsening chest pain, weakness, confusion, high fevers. Follow up with your primary care provider as soon as possible, in the next 2-3 days. - Post Discharge Activity
[2020-03-18 09:50] VITALS: BP 154/67; PULSE 87; TEMP 98.5
--- NOTE | 2020-03-18 13:48 | EKG ---
Test Reason : Blood Pressure : / mmHG Vent. Rate : 070 BPM Atrial Rate : 070 BPM P-R Int : 172 ms QRS Dur : 090 ms QT Int : 410 ms P-R-T Axes : 054 022 138 degrees QTc Int : 442 ms NORMAL SINUS RHYTHM POSSIBLE LEFT ATRIAL ENLARGEMENT NONSPECIFIC T WAVE ABNORMALITY ABNORMAL ECG Confirmed by BHAVNA MCGILL MD ([id number]) on 03/18/2020 1:48:15 PM Referred By: Confirmed By:BHAVNA MCGILL MD
[2020-03-18] MEDS ORDERED: LIDOCAINE PATCH REMOVAL MC SCH (22:00)
== END 2020-03-18 09:50 | disposition home or self-care (01) ==
LOC: JER 04:39
PROC: 3E0333Z Introduction of Anti-inflammatory into Peripheral Vein, Percutaneous Approach (ICD-10-PCS; principal; 2020-03-18)
DX: M54.5 Low back pain (principal); R07.9 Chest pain, unspecified
CPT/HCPCS: 36415; 71046-TC-FY; 80053; 82550; 82553; 84484; 85025; 93005; 93010; 99285-25; J0131

== ENCOUNTER 2020-07-05 14:49 | Emergency (ER) | payer OTHER ==
[2020-07-05 15:13] VITALS: BP 156/88; PULSE 100; BMI 39.4
== END 2020-07-05 17:40 | disposition home or self-care (01) ==
LOC: JERFT 14:49
DX: M79.604 Pain in right leg (principal)
CPT/HCPCS: 73562-TC-RT-FY; 93971-TC; 99284-25

== ENCOUNTER 2020-08-29 17:43 | Emergency (ER) | payer OTHER ==
[2020-08-29 17:56] VITALS: BMI 39.4
[2020-08-29 18:47] VITALS: TEMP 98.2
[2020-08-29] MEDS ORDERED: AZITHROMYCIN 500 MG TABLET PO ONE (20:16)
[2020-08-29] MEDS ORDERED: AZITHROMYCIN 250 MG TABLET ONE (20:19)
[2020-08-29] MEDS ORDERED: cefTRIAXone SODIUM 1 GM VIAL ONE (20:20)
[2020-08-29] MEDS ORDERED: LIDOCAINE HCL 1%, 10 MG/ML (20ML VIAL) ONE (20:20)
[2020-08-29 20:23] LABS: EPI CELLS 11 /uL (0-25.1); HYALINE CASTS 1 /uL (0-3.1); URINE APPEARANCE CLEAR; URINE BACTERIA 67 /uL (0-1359); URINE BILIRUBIN NEGATIVE (NEGATIVE); URINE COLOR YELLOW; URINE GLUCOSE (UA) NEGATIVE (NEGATIVE); URINE KETONE NEGATIVE (NEGATIVE); URINE LEUK ESTERASE NEGATIVE (NEGATIVE); URINE NITRITE NEGATIVE (NEGATIVE); URINE PROTEIN NEGATIVE (NEGATIVE); URINE RBC 6 /uL (0-23.9); URINE WBC 8 /uL (0-25.8)
[2020-08-29 20:49] VITALS: BP 155/80; PULSE 68
== END 2020-08-29 20:40 | disposition home or self-care (01) ==
LOC: JER 17:43
DX: R10.2 Pelvic and perineal pain (principal)
CPT/HCPCS: 36415; 76830-TC; 81003; 87086; 87491; 87591; 99284-25

== ENCOUNTER 2023-01-15 09:39 | Emergency (ER) | payer OTHER ==
[2023-01-15 09:48] VITALS: BP 134/80; PULSE 75; RESP 18; TEMP 97.6; BMI 32.9
[2023-01-15] MEDS ORDERED: METOCLOPRAMIDE HCL INJECTION 10 MG/2 ML VIAL IVPUSH ONE (11:09)
[2023-01-15] MEDS ORDERED: METOCLOPRAMIDE HCL INJECTION 10 MG/2 ML VIAL ONE (11:23)
[2023-01-15] MEDS ORDERED: SODIUM CHLORIDE 0.9% 500 ML INFUS.BAG IV ONE (11:57)
== END 2023-01-15 14:04 | disposition home or self-care (01) ==
LOC: JER 09:39
PROC: 3E033GC Introduction of Other Therapeutic Substance into Peripheral Vein, Percutaneous Approach (ICD-10-PCS; principal; 2023-01-15)
DX: R51.9 Headache, unspecified (principal); H53.71 Glare sensitivity; R11.10 Vomiting, unspecified; H53.8 Other visual disturbances
CPT/HCPCS: 70450-TC; 93005; 93010; 99284-25

== ENCOUNTER 2023-09-21 22:46 | Emergency (ER) | payer OTHER ==
[2023-09-21 22:57] VITALS: BP 126/65; PULSE 85; RESP 18; TEMP 98.4; BMI 34.9
[2023-09-21] MEDS ORDERED: TETRACAINE 0.5% OPHTH SOLN 2 ML BOTTLE ONE (23:39)
[2023-09-21] MEDS ORDERED: FLUORESCEIN NA 1 EA STRIP ONE (23:39)
[2023-09-21] MEDS: FLUORESCEIN NA 1 EA STRIP OD ONE (23:40)
[2023-09-21] MEDS: TETRACAINE 0.5% HCL 0.6ML DROPPER.BOTTLE OD ONE (23:40)
== END 2023-09-22 00:27 | disposition home or self-care (01) ==
LOC: JER 22:46
DX: S05.01XA Injury of conjunctiva and corneal abrasion without foreign body, right eye, initial encounter (principal); H57.11 Ocular pain, right eye; X58.XXXA Exposure to other specified factors, initial encounter
CPT/HCPCS: 71046-TC-FY; 99283-25